=== PATIENT | female | born 1950 | race Caucasian/White ===

== ENCOUNTER → 2017-05-08 | Outpatient (CLI) | payer MEDICARE ==
[2017-01-26 05:01] VITALS: BP 155/89
[~2017-05-08] MED LIST: ACET500T55 PO; ALEN70TA5 PO; ATEN100T PO; DIPH25CA58 PO; FERR-26 PO; FURO-68 PO; LISI40TA PO; METH4TAB2 PO; PANT40TA5 PO; SIMV10TA3 PO
--- NOTE | 2017-05-08 10:55 | RAD ---
EXAM: CT abdomen/pelvis without contrast. HISTORY: Abdominal pain, chronic renal disease. TECHNIQUE: Computed tomography of the abdomen and pelvis was performed without intravenous contrast. COMPARISON: 01/20/2017. FINDINGS: Lung windows through the visualized portions of the bases reveal mild atelectasis. Bone windows reveal no suspicious lesions. The gallbladder is surgically absent. The common duct is mildly dilated at 8 mm. There is a small amount of pneumobilia. A small cyst is seen in hepatic segment 8 centrally. The spleen, pancreas and adrenal glands are unremarkable. There are no pathologically enlarged lymph nodes. There is a retroaortic left renal vein. A cyst in the right kidney measures 1 cm. It has decreased in size since the prior study. There is no hydronephrosis. There are no clearly solid masses without contrast. The appendix is not inflamed. There is no obstruction. IMPRESSION: 1. No cause for acute pain is identified. 2. Mild extrahepatic biliary dilatation status post cholecystectomy. Correlate for cholestasis to assess significance. There is a small amount of pneumobilia. Correlate for prior sphincterotomy. *One or more of the following individualized dose reduction techniques were utilized for this examination: 1. Automated exposure control. 2. Adjustment of the mA and/or kV according to patient size. 3. Use of iterative reconstruction technique.
== END | disposition home or self-care (01) ==
LOC: CT 10:18
PROVIDERS: ATTEND Family Medicine
DX: I12.9 Hypertensive chronic kidney disease with stage 1 through stage 4 chronic kidney disease, or unspecified chronic kidney disease (principal); N18.4 Chronic kidney disease, stage 4 (severe); D63.1 Anemia in chronic kidney disease; N28.89 Other specified disorders of kidney and ureter; J98.11 Atelectasis; K76.89 Other specified diseases of liver; N28.1 Cyst of kidney, acquired; Z90.49 Acquired absence of other specified parts of digestive tract
CPT/HCPCS: 74176

== ENCOUNTER 2021-04-25 10:27 | Emergency (ER) | payer OTHER, MEDICARE ==
[~2021-04-25] VITALS: Ht 154.9 cm; Wt 91.8 kg
[~2021-04-25 10:27] MED LIST changes: -ACET500T55 PO; +ACET500T56 PO; -ALEN70TA5 PO; +ALEN70TA71 PO; -FERR-26 PO; +FERR325T14 PO; -LISI40TA PO; +LISI40TA6 PO; -PANT40TA5 PO; +PANT40TA6 PO; +SIMV10TA15 PO; -SIMV10TA3 PO
[2021-04-25 10:32] VITALS: BP 191/92
--- NOTE | 2021-04-25 11:01 | PHYS DOC ---
Past History Past Medical History: High Cholesterol, Hypertension, Renal Disease Additional Past Medical Histor: iron def , "kidney problems" Past Surgical History: No Surgical History Alcohol Use: None General Adult EDM: Chief Complaint: MECHANICAL FALL Problems: (1) Fall from standing HPI: HPI: Patient is a 71 year old female who presents with left eyebrow swelling and pain after a fall from standing. Patient states that she was in her managers office, and on the way out she tripped over a box in the carotid doorway. Patient reports a headache with pain rated 3/10. Patient denies loss of consciousness, vision changes, nausea, vomiting. She denies use of any blood thinners or fr equent falls. Patient has no other complaints at this time. Review of Systems: Review of Systems: Constitutional: Denies fever or chills HEENT: See HPI. Respiratory: Denies cough or shortness of breath Cardiovascular: Denies chest pain or edema GI: See HPI. Musculoskeletal: Denies back pain or joint pain Integument: Denies lacerations, rash Neurologic: See HPI. Allergies: Allergies: Allergies Coded Allergies Type Severity Reaction Last Updated Verified meropenem Allergy Intermediate Shortness of Air 02/16/17 Yes MARY Inhibitors Allergy Unknown 04/25/21 Yes Physical Exam: PE: Constitutional: Well developed, well nourished, no acute distress, non-toxic appearance. HENT: Hematoma noted on R supraorbital ridge. No temporal tenderness. Normocephalic, bilateral external ears normal, oropharynx moist, no oral exudates, nose normal. Eyes: PERRLA, EOMI, conjunctiva normal, no discharge. Neck: Normal range of motion, no tenderness, supple, no stridor. Cardiovascular: Heart rate regular rhythm, no murmur. Lungs & Thorax: Bilateral breath sounds clear to auscultation. Skin: Warm, dry, no erythema, no rash. Back: No tenderness, no CVA tenderness. Extremities: No tenderness, no cyanosis, no clubbing, ROM intact, no edema. Neurologic: Alert and oriented X 3, normal motor function, normal sensory function, no focal deficits noted. Current Patient Data: Vital Signs: Vital Signs Date Time Temp Pulse Resp B/P (MAP) Pulse Ox O2 Delivery O2 Flow Rate FiO2 04/25/21 10:32 97.9 65 16 191/92 (125) 96 Room Air Radiology/Procedures: Radiology/Procedures: PROCEDURE: CT HEAD AND MAXILLOFACIAL WO CT HEAD AND MAXILLOFACIAL WO History: Fall today. Orbital trauma. Comparison: CT head 03/08/2019. Technique: Noncontrast CT of the head and maxillofacial bones. Exposure: One or more of the following individualized dose reduction techniques were utilized for this examination: 1. Automated exposure control 2. Adjustment of the mA and/or kV according to patient size 3. Use of iterative reconstruction technique. Findings: CT HEAD: There is no evidence for intracranial mass or hemorrhage. There is no hydrocephalus or midline shift. No abnormal extra-axial fluid collections are present. Prather/white matter differentiation is preserved. The visualized paranasal sinuses and mastoid air cells are clear. The skull and scalp are within normal limits. CT MAXILLOFACIAL: No acute facial fracture identified. The bilateral orbits are symmetric and unremarkable. Right supraorbital soft tissue swelling. The paranasal sinuses and visualized mastoid air cells are well aerated. Impression: 1. No acute intracranial findings. 2. No facial fracture. Right supraorbital soft tissue swelling. Electronically signed by: Robert Hdez MD (04/25/2021 11:37 AM) [id number] Heart Score: C/O Chest Pain: No Course & Med Decision Making: Course & Med Decision Making Pertinent Labs and Imaging studies reviewed. (See chart for details) Head and facial CT ordered to evaluate for facial fracture and any underlying head trauma. At this time patient states she does not need any medication for pain. On reevaluation, patient states that her pain has worsened slightly. Rather than taking acetaminophen from the department, she elected to take her own she has from home. She took 500 mg of acetaminophen. Scans did not show any facial fracture or acute CT findings. Patient will be discharged home for instruction on controlling pain and swelling of the supraorbital contusion. Dragon Disclaimer: Dragon Disclaimer: This electronic medical record was generated, in whole or in part, using a voice recognition dictation system. Departure Departure: Impression: Primary Impression: Supraorbital ecchymosis Disposition: HOME / SELF CARE / HOMELESS Condition: STABLE Referrals: PRATIBHA DANGELO MD (PCP) Patient Instructions: Eye Contusion, [id number] Additional Instructions: Your CT scan today did not show any facial fractures or underlying head trauma. To control pain and swelling of your contusion, you may take Tylenol at home as directed and use ice packs for 20 minutes at a time. Return to the emergency department for increased swelling or pain, or if you experience any vision changes. ELI MALIK Apr 25, 2021 11:01
--- NOTE | 2021-04-25 11:39 | RAD ---
CT HEAD AND MAXILLOFACIAL WO History: Fall today. Orbital trauma. Comparison: CT head 03/08/2019. Technique: Noncontrast CT of the head and maxillofacial bones. Exposure: One or more of the following individualized dose reduction techniques were utilized for thi s examination: 1. Automated exposure control 2. Adjustment of the mA and/or kV according to patient size 3. Use of iterative reconstruction technique. Findings: CT HEAD: There is no evidence for intracranial mass or hemorrhage. There is no hydrocephalus or midline shift. No abnormal extra-axial fluid collections are present. Prather/white matter differentiation is preserved. The visualized paranasal sinuses and mastoid air cells are clear. The skull and scalp are within normal limits. CT MAXILLOFACIAL: No acute facial fracture identified. The bilateral orbits are symmetric and unremarkable. Right supraorbital soft tissue swelling. The paranasal sinuses and visualized mastoid air cells are well aerated. Impression: 1. No acute intracranial findings. 2. No facial fracture. Right supraorbital soft tissue swelling. Electronically signed by: Robert Hdez MD (04/25/2021 11:37 AM) [id number]
== END 2021-04-25 11:52 | disposition home or self-care (01) ==
LOC: ER 10:27
DX: S05.11XA Contusion of eyeball and orbital tissues, right eye, initial encounter (principal); R51.9 Headache, unspecified; E78.5 Hyperlipidemia, unspecified; I10 Essential (primary) hypertension; Z88.1 Allergy status to other antibiotic agents; W18.00XA Striking against unspecified object with subsequent fall, initial encounter; Y93.89 Activity, other specified; Y92.89 Other specified places as the place of occurrence of the external cause; Y99.8 Other external cause status
CPT/HCPCS: 70450; 70486; 99285-25